=== PATIENT | female | born 1975 | race Two or more races ===

== ENCOUNTER 2019-05-30 11:47 | Emergency (ER) | payer MEDICAID, OTHER ==
[~2019-05-30] VITALS: Ht 167.6 cm; Wt 91.3 kg
--- NOTE | 2019-05-30 12:14 | NUR ---
Pt to 37 from lobby
[2019-05-30] MEDS ORDERED: PHENAZOPYRIDINE 200 MG TABLET ONE (12:21)
[2019-05-30 12:23] LABS: MICROSCOPIC AUTO
[2019-05-30] MEDS ORDERED: BUTA-177 PO (12:26)
[2019-05-30 12:29] LABS: CULTURE INDICATED? NO
[2019-05-30] MEDS ORDERED: PHENAZOPYRIDINE 200 MG TABLET PO ONE (12:30)
[2019-05-30] MEDS ORDERED: SODIUM CHLORIDE FLUSH 10ML SYR IVF ONE (13:00)
--- NOTE | 2019-05-30 13:11 | NUR ---
PIV PLACED FOR CT SCAN, PT IS A&O, RESPS EVEN AND UNLABORED. NO N/V AT THIS TIME. PT UPDATED WITH POC. AWAITING CT AND DISPO AT THIS TIME.
[2019-05-30 13:15] LABS: MEAN CORPUSCULAR HEMOGLOBIN 29.2 pg (27.0-34.8); MEAN CORPUSCULAR HGB CONC 33.5 g/dL (32.4-35.8); MEAN CORPUSCULAR VOLUME 87.4 fL (80-100); MEAN PLATELET VOLUME 9.1 fL (7.4-10.4); PLATELET COUNT 339 x10^3/uL (130-400); RED BLOOD COUNT 4.94 x10^6/uL (3.82-5.3); RED CELL DISTRIBUTION WIDTH 14.6 % (9.6-15.2)
[2019-05-30 13:17] LABS: ALBUMIN 3.6 g/dL (3.4-5.0); ANION GAP 4 mmol/L (5-15); CALCIUM 9.1 mg/dL (8.5-10.1); CHLORIDE 109 mmol/L (98-107); CREATININE 0.85 mg/dL (0.55-1.02)
[2019-05-30 13:31] LABS: BASOPHILS # (AUTO) 0.03 x10^3/uL (0-0.1); BASOPHILS % (AUTO) 0 % (0-1); EOSINOPHILS # (AUTO) 0.11 x10^3/uL (0-0.4); EOSINOPHILS % (AUTO) 1 % (1-7); LYMPHOCYTES # (AUTO) 1.95 x10^3/uL (1-3.4); LYMPHOCYTES % (AUTO) 25 % (22-44); MD SCAN; MONOCYTES # (AUTO) 0.69 x10^3/uL (0.2-0.8); MONOCYTES % (AUTO) 9 % (2-9); NEUTROPHILS # (AUTO) 4.93 x10^3/uL (1.8-6.8); NEUTROPHILS % (AUTO) 64 % (42-75)
[2019-05-30 13:59] VITALS: BP 140/90
--- NOTE | 2019-05-30 13:59 | NUR ---
PRECEPTOR RN: REPORT FROM BRY[facility] CORTÉS. [facility] PT REPORTS IMPROVEMENT IN PAIN WITH MEDICATIONS. DENIES NEED FOR PAIN/NAUSEA MEDICATIONS BP/SPO2 MONITORING IN PLACE. PT UPDATED TO POC (CT/RESULTS/RECHECK) AND DEMONSTRATES UNDERSTANDING.
--- NOTE | 2019-05-30 14:06 | NUR ---
report given to RNs [place] and [place], pt a&o, resps even and unlabored, nadn. pt awaiting CT and dispo at this time. pt denies need for pain medication at this time.
--- NOTE | 2019-05-30 14:34 | NUR ---
PT IN EXTREME PAIN WHEN TRYING TO PUSH EVEN A LITTLE SALINE INTO IV (.5ML). PT WILL NEED NEW IV OR IV FIXED FOR CT
[2019-05-30] MEDS ORDERED: FUROSEMIDE 40 MG/4 ML ONE (14:36)
--- NOTE | 2019-05-30 14:51 | NUR ---
PATIENT STATES REPEATEDLY "I'M JUST GONNA GO HOME, I DON'T WANT TO BE HERE ANYMORE". PATIENT UP TO BATHROOM, STATES "THERE'S BLOOD IN MY URINE". PATIENT'S IV WAS INFILTRATED WHEN IN CT, PATIENT BROUGHT BACK FROM CT, IV DISCONTINUED AND STILL INTACT. MD NOTIFIED, STATES HE WILL CHANGE ORDERS TO CT WITHOUT CONTRAST. PATIENT STATES SHE WILL AGREE TO STAY FOR THAT. PATIENT BACK IN BED, FAMILY IN ROOM.
--- NOTE | 2019-05-30 15:04 | NUR ---
PT IN CT
--- NOTE | 2019-05-30 15:12 | NUR ---
PATIENT BACK FROM CT, [place] RESPIRATIONS EVEN AND UNLABORED. DENIES NEEDS AT THIS TIME.
== END 2019-05-30 16:16 | disposition home or self-care (01) ==
LOC: ED 15:44
DX: D25.9 Leiomyoma of uterus, unspecified (principal); R10.30 Lower abdominal pain, unspecified; M54.5 Low back pain
CPT/HCPCS: 36415; 74176; 80048; 81001; 82040; 84703; 85025; 99284

== ENCOUNTER 2019-11-05 19:43 | Emergency (ER) | payer MEDICAID, OTHER ==
[~2019-11-05] VITALS: Ht 167.6 cm; Wt 93.8 kg
[~2019-11-05 19:43] MED LIST: BUTA-177 PO
[2019-11-05] MEDS ORDERED: ACETAMINOPHEN 325 MG TABLET ONE (20:26)
[2019-11-05] MEDS ORDERED: ACETAMINOPHEN 325 MG TABLET PO ONE (20:30)
[2019-11-05 20:31] LABS: BASOPHILS # (AUTO) 0.06 x10^3/uL (0-0.1); BASOPHILS % (AUTO) 1 % (0-1); EOSINOPHILS # (AUTO) 0.05 x10^3/uL (0-0.4); EOSINOPHILS % (AUTO) 1 % (1-7); LYMPHOCYTES # (AUTO) 2.33 x10^3/uL (1-3.4); LYMPHOCYTES % (AUTO) 23 % (22-44); MD NO; MEAN CORPUSCULAR HEMOGLOBIN 28.6 pg (27.0-34.8); MEAN CORPUSCULAR HGB CONC 33.5 g/dL (32.4-35.8); MEAN CORPUSCULAR VOLUME 85.5 fL (80-100); MEAN PLATELET VOLUME 8.7 fL (7.4-10.4); MONOCYTES # (AUTO) 0.58 x10^3/uL (0.2-0.8); MONOCYTES % (AUTO) 6 % (2-9); NEUTROPHILS # (AUTO) 7.09 x10^3/uL (1.8-6.8); NEUTROPHILS % (AUTO) 70 % (42-75); PLATELET COUNT 361 x10^3/uL (130-400); RED CELL DISTRIBUTION WIDTH 14.9 % (9.6-15.2)
[2019-11-05 20:41] LABS: ANION GAP 8 mmol/L (5-15); CHLORIDE 107 mmol/L (98-107); CREATININE 1.08 mg/dL (0.55-1.02)
[2019-11-05 20:45] LABS: TROPONIN I < 0.015 ng/mL (0.000-0.045)
[2019-11-05 22:13] VITALS: BP 115/74
== END 2019-11-05 22:14 | disposition home or self-care (01) ==
LOC: ED 21:12
DX: R07.89 Other chest pain (principal); R11.0 Nausea; R00.0 Tachycardia, unspecified
CPT/HCPCS: 36415; 71046; 80048; 82040; 84484; 85025; 85379; 93005; 99285